=== PATIENT | male | born 1965 | race Hispanic/Latino ===

== ENCOUNTER 2019-08-09 09:53 | Outpatient (CLI) | payer OTHER ==
--- NOTE | 2019-08-09 10:16 | RAD ---
XR Lumbar Spine 2 Or 3 View HISTORY: Low back pain with radiculopathy FINDINGS: There is levoscoliosis of the lumbar spine. Degenerative changes are seen in the lower lumbar spine. No acute fracture, subluxation or bony destruction is seen.
--- NOTE | 2019-08-09 10:17 | RAD ---
RADIOGRAPH CHEST 2 VIEWS: DATE: 08/09/2019 HISTORY: 54-year-old male with weight loss. FINDINGS: There is no airspace density, pulmonary edema, pleural effusion, pneumothorax, or cardiomegaly. No me diastinal widening or hilar enlargement. Tortuous ascending thoracic aorta. IMPRESSION: No active cardiopulmonary findings.
== END 2019-08-09 09:54 | disposition home or self-care (01) ==
LOC: BICRAD 09:53
PROVIDERS: ATTEND Family Medicine
DX: M54.16 Radiculopathy, lumbar region (principal); R63.4 Abnormal weight loss
CPT/HCPCS: 36415; 71046; 72100; 80053; 80061; 81001; 83036; 84443; 85025; G0103

== ENCOUNTER 2021-09-24 08:21 | Outpatient (CLI) | payer BC | END 2021-09-24 08:22 | disposition home or self-care (01) | LOC: BICULT 08:21 | PROVIDERS: ATTEND Family Medicine | DX: R74.8 Abnormal levels of other serum enzymes (principal); K74.60 Unspecified cirrhosis of liver | CPT/HCPCS: 76705 ==

== ENCOUNTER 2021-11-05 12:01 | Outpatient (CLI) | payer BC ==
[2021-11-06 07:54] LABS: SARS-CoV-2 PCR by NAA Not Detected (NotDetected)
== END 2021-11-05 12:02 | disposition home or self-care (01) ==
LOC: LABBT 12:01
PROVIDERS: ATTEND Internal Medicine Gastroenterology
DX: Z01.812 Encounter for preprocedural laboratory examination (principal); Z20.822 Contact with and (suspected) exposure to COVID-19
CPT/HCPCS: U0003; U0005

== ENCOUNTER 2021-11-05 13:26 | Outpatient (CLI) | payer BC, OTHER | END 2021-11-05 13:27 | disposition home or self-care (01) | LOC: DTY/OP 13:26 | PROVIDERS: ATTEND Family Medicine | DX: K74.60 Unspecified cirrhosis of liver (principal); E11.9 Type 2 diabetes mellitus without complications | CPT/HCPCS: 97802 ==

== ENCOUNTER 2021-11-09 07:37 | Day surgery (SDC) | payer BC ==
[2021-11-08 08:06] VITALS: BMI 29.4
[2021-11-09 08:26] LABS: #Eosinphils 0.2 thou/uL (0.0-0.7); #Lymphocytes 1.4 thou/uL (1.20-3.40); #Monocytes 0.6 thou/uL (0.11-0.59); #Neutrophils 3.2 thou/uL (1.40-6.50); %Basophils 0.5 % (0.0-1.0); %Eosinophils 4.4 % (0.0-10.0); %Lymphocytes 25.8 % (21.0-51.0); %Monocytes 10.4 % (0.0-10.0); %Neutrophils 58.9 % (42.0-75.0); Hemoglobin 15.5 g/dL (14.0-18.0); Mean Corpuscular HGB CONC 33.4 g/dL (32.0-36.0); Mean Corpuscular Hemoglobin 32.5 pg (27.0-31.0); Mean Corpuscular Volume 97.5 fL (78.0-98.0); Mean Platelet Volume 6.8 fL (7.4-10.4); Platelet Count 120 thou/uL (130-400); RBC Distribution Width 12.4 % (11.5-14.5); Red Blood Cell (RBC) Count 4.76 mill/uL (4.70-6.10); White Blood Cell (WBC) Count 5.4 thou/uL (4.8-10.8)
[2021-11-09 08:28] LABS: INR-International Normal Ratio 1.2; PTT 33.6 sec (22.9-36.1); Prothrombin Time 15.5 sec (12.0-14.7)
[2021-11-09] MEDS ORDERED: Fentanyl 100 MCG/2 ML VIAL ONE (08:51)
[2021-11-09] MEDS ORDERED: Midazolam HCl 2 mg/2 ml Vial ONE (08:52)
[2021-11-09] MEDS ORDERED: Sodium Bicarbonate 2.5 MEQ/5 ML VIAL ONE (08:52)
[2021-11-09] MEDS ORDERED: Lidocaine 1% PF 5 ML VIAL ONE (08:52)
== END 2021-11-09 14:05 | disposition home or self-care (01) ==
LOC: ULT 07:37
PROVIDERS: ATTEND Physician Assistant Medical
PROC: 0FB23ZX Excision of Left Lobe Liver, Percutaneous Approach, Diagnostic (ICD-10-PCS; principal; 2021-11-09)
DX: K74.60 Unspecified cirrhosis of liver (principal); K73.9 Chronic hepatitis, unspecified; I85.10 Secondary esophageal varices without bleeding; K76.6 Portal hypertension; K31.89 Other diseases of stomach and duodenum; E11.9 Type 2 diabetes mellitus without complications
CPT/HCPCS: 36415; 47000; 76705; 77012; 85025; 85610; 85730; 88307; 88313; J2250; J3010

== ENCOUNTER 2022-06-07 07:11 | Outpatient (CLI) | payer OTHER ==
[2022-06-07] MEDS ORDERED: Iopamidol 370 76% 100 ML VIAL ONE (09:06)
== END 2022-06-07 07:12 | disposition home or self-care (01) ==
LOC: CT 07:11
PROVIDERS: ATTEND Physician Assistant Medical
DX: K74.69 Other cirrhosis of liver (principal); R63.4 Abnormal weight loss; K76.6 Portal hypertension; N20.0 Calculus of kidney; R16.1 Splenomegaly, not elsewhere classified; I85.00 Esophageal varices without bleeding; N28.89 Other specified disorders of kidney and ureter; K59.00 Constipation, unspecified; M47.818 Spondylosis without myelopathy or radiculopathy, sacral and sacrococcygeal region; M16.0 Bilateral primary osteoarthritis of hip; M47.816 Spondylosis without myelopathy or radiculopathy, lumbar region; M47.814 Spondylosis without myelopathy or radiculopathy, thoracic region
CPT/HCPCS: 74177; Q9967

== ENCOUNTER 2023-01-29 07:10 | Outpatient (CLI) | payer OTHER | END 2023-01-29 07:11 | disposition home or self-care (01) | LOC: ULT 07:10 | PROVIDERS: ATTEND Physician Assistant Medical | DX: K74.69 Other cirrhosis of liver (principal); I85.00 Esophageal varices without bleeding; N13.30 Unspecified hydronephrosis; K82.9 Disease of gallbladder, unspecified | CPT/HCPCS: 76705 ==

== ENCOUNTER 2023-05-19 15:24 | Outpatient (CLI) | payer OTHER | END 2023-05-19 15:25 | disposition home or self-care (01) | LOC: BICCT 15:24 | PROVIDERS: ATTEND Urology | DX: N13.30 Unspecified hydronephrosis (principal); N13.2 Hydronephrosis with renal and ureteral calculous obstruction; K74.60 Unspecified cirrhosis of liver; R16.1 Splenomegaly, not elsewhere classified; K76.6 Portal hypertension; I86.4 Gastric varices; K80.20 Calculus of gallbladder without cholecystitis without obstruction | CPT/HCPCS: 74176 ==

== ENCOUNTER 2023-07-01 09:44 | Outpatient (CLI) | payer OTHER ==
[2023-07-01 11:05] LABS: Bilirubin Neg (Negative); Blood, Urine 10 (Negative); Clarity Clear (Clear); Glucose, Urine (Dipstick) Normal (Negative); Ketone, Urine Negative (Negative); Leukocyte 25 (Negative); Nitrite Negative (Negative); Protein, Urine (Dipstick) Negative (Neg-Trace); pH, Urine 6.5 (5.0-9.0)
[2023-07-01 11:14] LABS: Hematocrit 38.8 % (38.8-50.0); Hemoglobin 14.1 g/dL (13.5-17.5); Mean Corpuscular HGB CONC 36.3 g/dL (32.0-36.0); Mean Corpuscular Hemoglobin 34.4 pg (27.0-33.0); Mean Corpuscular Volume 94.6 fl (81.2-95.1); Mean Platelet Volume 9.1 fl (7.4-10.4); Platelet Count 96 10x3/uL (150-450); RBC Distribution Width 13.2 % (11.5-14.5); White Blood Cell (WBC) Count 5.5 10x3/uL (3.5-10.5)
[2023-07-01 11:34] LABS: Bacteria/HPF Rare-Few HPF (None Seen); Calcium Oxalate Crystals Rare HPF (None Seen); RBC/HPF 0-3 HPF (0-3); Squamous Epithelial 0-3 HPF (0-3)
[2023-07-01 11:39] LABS: INR-International Normal Ratio 1.1; PTT 29.6 sec (22.0-33.0); Prothrombin Time 11.9 sec (9.5-12.1)
[2023-07-01 11:42] LABS: Anion Gap 10 mmol/L (10-20); BUN (Urea Nitrogen) 9 mg/dL (8.4-25.7); Calc. Creatinine Clearance 0 mL/min (70-130); Calcium 8.3 mg/dL (7.8-10.44); Carbon Dioxide 21 mmol/L (22-29); Chloride 111 mmol/L (98-107); Estimated GFR 108; Glucose 106 mg/dL (70-105); Potassium 4.4 mmol/L (3.5-5.1); Sodium 138 mmol/L (136-145)
== END 2023-07-01 09:45 | disposition home or self-care (01) ==
LOC: LABBT 09:44
PROVIDERS: ATTEND Urology
DX: Z01.818 Encounter for other preprocedural examination (principal); E11.65 Type 2 diabetes mellitus with hyperglycemia; N13.30 Unspecified hydronephrosis; N20.0 Calculus of kidney; K74.69 Other cirrhosis of liver; K76.6 Portal hypertension
CPT/HCPCS: 80048; 81001; 85027; 85610; 85730; 87086; 93005; 93010

== ENCOUNTER 2023-07-21 08:49 | Outpatient (CLI) | payer OTHER | END 2023-07-21 08:50 | disposition home or self-care (01) | LOC: ULT 08:49 | PROVIDERS: ATTEND Internal Medicine Gastroenterology | DX: K74.69 Other cirrhosis of liver (principal); I85.10 Secondary esophageal varices without bleeding; R16.1 Splenomegaly, not elsewhere classified; K80.20 Calculus of gallbladder without cholecystitis without obstruction | CPT/HCPCS: 76705 ==

== ENCOUNTER 2023-08-19 15:35 | Outpatient (CLI) | payer OTHER ==
[2023-08-19 16:40] LABS: Bilirubin Neg (Negative); Blood, Urine 25 (Negative); Clarity Clear (Clear); Glucose, Urine (Dipstick) Normal (Negative); Ketone, Urine Negative (Negative); Leukocyte 100 (Negative); Nitrite Negative (Negative); Protein, Urine (Dipstick) 15 mg/dl (Neg-Trace); Specific Gravity, Urine 1.015 (1.005-1.030)
[2023-08-19 17:00] LABS: Anion Gap 12 mmol/L (10-20); BUN (Urea Nitrogen) 7 mg/dL (8.4-25.7); Calc. Creatinine Clearance 0 mL/min (70-130); Calcium 8.4 mg/dL (7.8-10.44); Carbon Dioxide 18 mmol/L (22-29); Chloride 112 mmol/L (98-107); Estimated GFR 110; Glucose 103 mg/dL (70-105); Potassium 3.7 mmol/L (3.5-5.1); Sodium 138 mmol/L (136-145)
[2023-08-19 17:03] LABS: ALT (SGPT) 38 U/L (8-55); AST (SGOT) 56 U/L (5-34); Albumin 3.4 g/dL (3.5-5.0); Alkaline Phosphatase 162 U/L (40-110); Bilirubin, Direct 0.8 mg/dL (0.1-0.3); Bilirubin, Total 2.5 mg/dL (0.2-1.2); Protein, Total 7.1 g/dL (6.0-8.3)
[2023-08-19 17:08] LABS: INR-International Normal Ratio 1.1; PTT 29.6 sec (22.0-33.0); Prothrombin Time 11.9 sec (9.5-12.1)
[2023-08-19 17:34] LABS: Hematocrit 38.7 % (38.8-50.0); Hemoglobin 13.8 g/dL (13.5-17.5); Mean Corpuscular HGB CONC 35.7 g/dL (32.0-36.0); Mean Corpuscular Hemoglobin 32.6 pg (27.0-33.0); Mean Corpuscular Volume 91.5 fl (81.2-95.1); Mean Platelet Volume 9.4 fl (7.4-10.4); Platelet Count 112 10x3/uL (150-450); Red Blood Cell (RBC) Count 4.23 10x6/uL (4.32-5.72); White Blood Cell (WBC) Count 5.1 10x3/uL (3.5-10.5)
[2023-08-19 17:40] LABS: Bacteria/HPF 1+ HPF (None Seen); RBC/HPF 0-3 HPF (0-3); Squamous Epithelial 0-3 HPF (0-3); White Blood Cell Cast 0-3 LPF (None Seen)
== END 2023-08-19 15:36 | disposition home or self-care (01) ==
LOC: LABBT 15:35
PROVIDERS: ATTEND Urology
DX: Z01.812 Encounter for preprocedural laboratory examination (principal); E11.65 Type 2 diabetes mellitus with hyperglycemia; N13.30 Unspecified hydronephrosis; N20.0 Calculus of kidney; K74.69 Other cirrhosis of liver; K76.6 Portal hypertension
CPT/HCPCS: 80048; 80076; 81001; 85027; 85610; 85730; 87086

== ENCOUNTER 2023-08-22 06:27 | Day surgery (SDC) | payer OTHER ==
[2023-08-19 16:06] VITALS: BMI 28.5
[2023-08-22] MEDS ORDERED: PROPOFOL 20 ML ONE (08:43)
[2023-08-22] MEDS ORDERED: fentaNYL PF 100 MCG/2 ML SYRINGE ONE (08:43)
[2023-08-22] MEDS ORDERED: Lidocaine 1% PF 5 ML VIAL ONE ×2 (08:44→09:25)
[2023-08-22] MEDS ORDERED: Rocuronium Bromide 10 MG/ML (10ML VIAL) ONE ×2 (08:44→09:25)
[2023-08-22] MEDS ORDERED: LevoFLOXacin 500 mg/D5W 100 ML BAG ONE (09:06)
[2023-08-22] MEDS ORDERED: Dexmedetomidine 200 MCG/2 ML VIAL ONE (09:15)
[2023-08-22] MEDS ORDERED: Ondansetron PF 4 MG/2 ML Vial ONE ×2 (09:25→10:43)
[2023-08-22] MEDS ORDERED: PROPOFOL 200 MG/20 ML VIAL ONE (09:25)
[2023-08-22] MEDS ORDERED: SUGAMMADEX SODIUM 200 MG/2 ML VIAL ONE (10:40)
[2023-08-22] MEDS ORDERED: Oxybutynin 5 MG TAB ONE (11:03)
[2023-08-22] MEDS ORDERED: Phenazopyridine HCl 100 MG TAB ONE (11:04)
[2023-08-22] MEDS ORDERED: HYDROcodone/Acetaminophen 5/325 mg Tablet ONE (14:14)
== END 2023-08-22 14:29 | disposition home or self-care (01) ==
LOC: SDC 06:27
PROVIDERS: ATTEND Urology
PROC: 0TC78ZZ Extirpation of Matter from Left Ureter, Via Natural or Artificial Opening Endoscopic (ICD-10-PCS; principal; 2023-08-22)
PROC: 0T778DZ Dilation of Left Ureter with Intraluminal Device, Via Natural or Artificial Opening Endoscopic (ICD-10-PCS; principal; 2023-08-22)
DX: N20.0 Calculus of kidney (principal); E11.9 Type 2 diabetes mellitus without complications; K74.60 Unspecified cirrhosis of liver; E78.5 Hyperlipidemia, unspecified
CPT/HCPCS: 74420; 82365; 88300; C1713; C1747; C1769; C2617; J1956; J2405; J2704

== ENCOUNTER 2023-10-09 16:00 | Outpatient (CLI) | payer OTHER | END 2023-10-09 16:01 | disposition home or self-care (01) | LOC: SLEEPLAB 16:00 | PROVIDERS: ATTEND Family Medicine | DX: G47.33 Obstructive sleep apnea (adult) (pediatric) (principal); G47.10 Hypersomnia, unspecified; G47.00 Insomnia, unspecified; G47.9 Sleep disorder, unspecified; I10 Essential (primary) hypertension; R53.83 Other fatigue; R40.0 Somnolence; R06.83 Snoring; R35.1 Nocturia; E66.9 Obesity, unspecified; Z68.29 Body mass index [BMI] 29.0-29.9, adult | CPT/HCPCS: 95800 ==

== ENCOUNTER 2023-11-17 06:59 | Outpatient (CLI) | payer OTHER | END 2023-11-17 07:00 | disposition home or self-care (01) | LOC: BICULT 06:59 | PROVIDERS: ATTEND Urology | DX: N13.30 Unspecified hydronephrosis (principal) | CPT/HCPCS: 76770 ==

== ENCOUNTER 2024-09-13 07:30 | Outpatient (CLI) | payer OTHER | END 2024-09-13 07:31 | disposition home or self-care (01) | LOC: BICULT 07:30 | PROVIDERS: ATTEND Physician Assistant Medical | DX: K74.69 Other cirrhosis of liver (principal); I85.00 Esophageal varices without bleeding; R16.1 Splenomegaly, not elsewhere classified | CPT/HCPCS: 76705 ==